=== PATIENT | male | born 1995 | race Caucasian/White ===

== ENCOUNTER 2016-07-30 | Emergency (ER) | payer OTHER | END 2016-07-30 13:39 | disposition home or self-care (01) | DX: M43.6 Torticollis (principal) ==

== ENCOUNTER 2017-01-22 11:43 | Emergency (ER) | payer OTHER ==
[2017-01-22 12:06] LABS: BASOPHILS # (AUTO) 0.3 10^3/uL (0.0-0.1); BASOPHILS % (AUTO) 3.7 %; EOSINOPHILS % (AUTO) 0.3 %; HCT - HEMATOCRIT 47.2 % (42.0-52.0); HGB - HEMOGLOBIN 16.2 g/dL (14.0-18.0); LYMPHOCYTES # (AUTO) 1.3 10^3/uL (1.5-3.5); LYMPHOCYTES % (AUTO) 16.3 %; MEAN CORPUSCULAR HEMOGLOBIN 29.4 pg (27.0-31.0); MEAN CORPUSCULAR HGB CONC 34.2 g/dL (32.0-36.0); MEAN CORPUSCULAR VOLUME 86.1 fL (80.0-94.0); MEAN PLATELET VOLUME 7.9 fL (7.4-11.4); MONOCYTES # (AUTO) 0.7 10^3/uL (0.0-1.0); MONOCYTES % (AUTO) 8.4 %; NEUTROPHILS # (AUTO) 5.6 10^3/uL (1.5-6.6); NEUTROPHILS % (AUTO) 71.3 %; NUCLEATED RED BLOOD CELLS AUTO 0.2 /100WBC; RED BLOOD COUNT 5.49 10^6/uL (4.70-6.10); UNCORRECTED WHITE BLOOD COUNT 7.8 x10^3/uL; WHITE BLOOD COUNT 7.8 x10^3/uL (4.8-10.8)
[2017-01-22 12:16] LABS: ALBUMIN/GLOBULIN RATIO 1.1 (1.0-2.2); BILIRUBIN,TOTAL 0.6 mg/dL (0.2-1.0); CALCIUM 9.2 mg/dL (8.5-10.3); POTASSIUM 4.2 mmol/L (3.5-5.0)
[2017-01-22 12:26] LABS: INR 1.2 (0.8-1.2); PT - PROTHROMBIN TIME 13.8 secs (9.9-12.6)
--- NOTE | 2017-01-22 12:41 | ED Physician Documentation ---
History of Present Illness - Stated complaint Stated Complaint: STOMACH PX, BLOODY STOOL - Chief complaint Chief Complaint: Abd Pain - Additonal information Additional information: hx from pt 21 y/o m to ER with rectal pain and bloody mucous recently txed for strep no diarrhea though stools are a bit soft stool itself is not bloody or black no abd pain Review of Systems Constitutional: denies: Fever, Chills Cardiac: denies: Chest pain / pressure GI: reports: Other (rectal pain and bloody mucous). denies: Abdominal Pain PD PAST MEDICAL HISTORY - Past Medical History Past Medical History: No - Past Surgical History Past Surgical History: No - Present Medications Home Medications: Ambulatory Orders Medication Instructions Recorded Confirmed Dibucaine 1% Oint [Nupercainal 1 % 1 applic RC Q6H PRN #30 g 01/22/17 Oint] Glycerin Adult Supp 1 each MI DAILY #10 supp 01/22/17 - Allergies Allergies/Adverse Reactions: Allergies Allergy/AdvReac Type Severity Reaction Status Date / Time amoxicillin Allergy Unknown Verified 07/30/16 11:51 - Social History Does the pt smoke?: No Smoking Status: Never smoker Does the pt have substance abuse?: No - Immunizations Immunizations are current?: Yes PD ED PE NORMAL - Vitals Vital signs reviewed: Yes - Cardiac Cardiac: RRR - Respiratory Respiratory: No respiratory distress, Clear bilaterally - Abdomen Abdomen: Soft, Non tender - Rectal Rectal: Other (no mass, no hemorrhoid, small fissure not visibly bleeding, blooody mucous on NATHALIA) Results - Vitals Vitals: Vital Signs - 24 hr 01/22/17 11:46 Temperature 36.8 C Heart Rate 79 Respiratory 16 Rate Blood Pressure 154/84 H O2 Saturation 97 Oxygen O2 Source Room air - Labs Labs: Laboratory Tests 01/22/17 01/22/17 01/22/17 11:55 11:55 11:55 WBC 7.8 RBC 5.49 Hgb 16.2 Hct 47.2 MCV 86.1 MCH 29.4 MCHC 34.2 RDW 13.0 Plt Count 208 MPV 7.9 Neut # 5.6 Lymph # 1.3 L [place] # 0.7 Eos # 0.0 Baso # 0.3 H Absolute Nucleated RBC 0.02 Nucleated RBCs 0.2 PT 13.8 H INR 1.2 Sodium 138 Potassium 4.2 Chloride 99 L Carbon Dioxide 30 Anion Gap 9.0 BUN 13 Creatinine 1.0 Estimated GFR (MDRD) 93 Glucose 91 Calcium 9.2 Total Bilirubin 0.6 AST 22 ALT 19 Alkaline Phosphatase 71 Total Protein 8.0 Albumin 4.1 Globulin 3.9 Albumin/Globulin Ratio 1.1 Lipase 45 Departure - Departure Disposition: 01 Home, Self Care Clinical Impression: Rectal fissure Condition: Good Follow-Up: COSME FAJARDO [Primary Care Provider] - (for a recheck next week) Prescriptions: Glycerin Adult Supp 1 each MI DAILY #10 supp Dibucaine 1% Oint [Nupercainal 1 % Oint] 1 applic RC Q6H PRN #30 g PRN Reason: Rectal Pain Comments: Your blood count is fine. No tumor was found on exam, nor hemorrhoid It seems the pain and bleeding are coming from a small rectal fissure This should heal on its own The dibucaine will ease the pain and the glycerin suppositories with each BM will prevent any further tearing If you are not better in a few days please follow up with your PMD - you might need to have a scope of your colon in that case Also please have your PMD recheck your blood pressure - it was high today
[2017-01-22 12:56] VITALS: BP 129/85
== END 2017-01-22 12:55 | disposition home or self-care (01) ==
LOC: ED 11:43
DX: K60.2 Anal fissure, unspecified (principal)
CPT/HCPCS: 36415; 80053; 83690; 85025; 85610; 99282; 99283